=== PATIENT | male | born 1950 | race Caucasian/White ===

== ENCOUNTER 2018-12-01 14:43 | Inpatient (IN) ==
[2018-12-01] MEDS ORDERED: SOLU-MEDROL IV ONE (15:21)
[2018-12-01 16:02] LABS: BASO# 0.07 X1000 (0.0-0.2); BASO% 0.6 % (0.0-0.8); EOS# 0.21 X1000 (0.0-0.7); EOS% 1.9 % (0.0-10.0); HEMOGLOBIN 12.6 g/dL (14.0-18.0); IMM GRAN# 0.03 X1000 (0.0-0.04); IMM GRAN% 0.3 % (0.0-0.5); LYMPH# 1.64 X1000 (1.2-3.4); LYMPH% 14.5 % (20.5-51.1); MCH 28.1 PG (27-31); MCHC 31.5 g/dL (33-37); MCV 89.3 FL (81-99); MONO# 0.72 X1000 (0.11-0.59); MONO% 6.4 % (1.7-9.3); MPV 10.6 FL (7.4-10.4); NEUT# 8.65 X1000 (1.4-6.5); NEUT% 76.3 % (42.2-75.2); PLT 363 X1000 (130-400); RBC 4.48 XMIL (4.7-6.1); RDW 16.4 % (11.5-14.5); WBC 11.32 X1000 (4.8-10.8)
[2018-12-01 16:19] LABS: ALB/GLOB RATIO 0.9; ALBUMIN 3.7 g/dL (3.5-5.0); CALCIUM 9.3 mg/dL (8.8-10.2); CREATININE 1.2 mg/dL (0.7-1.2); POTASSIUM 4.4 mmol/L (3.5-5.1); TOTAL BILIRUBIN 0.43 mg/dL (0.20-1.00); TOTAL PROTEIN 7.7 g/dL (6.3-8.3)
[2018-12-01] MEDS ORDERED: XANAX PO ONE (16:53)
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
--- NOTE | 2018-12-01 17:04 | PROVIDER DOCUMENTATION ---
This chart was entered by Erica Rodriguez Scribe, acting as scribe for Hector Hurd MD. HPI-Respiratory General - General Chief Complaint: Shortness of Breath Stated Complaint: DR ROY-REFERRAL Time Seen by Provider: 12/01/18 15:00 Source: patient Allergies/Adverse Reactions: Patient Allergies Allergy/AdvReac Type Severity Reaction Status Date / Time glycopyrrolate [From Robinul] Allergy Severe SWELLING Verified 04/14/15 07:08 furosemide [From Lasix] Allergy Intermediate SWELLING Verified 04/14/15 07:08 Home Medications: Home Medication List Medication Instructions Recorded Confirmed Last Taken Type Alprazolam [Xanax] 2 mg PO Q12H PRN 04/12/15 04/14/15 Unknown History Aspirin/Dipyridamole [Aggrenox 25 1 each PO DAILY 04/12/15 04/14/15 Unknown History mg-200 mg Capsule] Bumetanide [Bumex] 1 mg PO BID 04/12/15 04/14/15 04/13/15 18:00 History Canagliflozin [Invokana] 300 mg PO DAILY 04/12/15 04/14/15 04/13/15 18:00 History Carvedilol [Coreg] 25 mg PO BID 04/12/15 04/14/15 04/14/15 06:00 History Clonazepam 0.5 mg PO Q12H PRN 04/12/15 04/14/15 Unknown History Clonidine [Catapres] 0.3 mg PO TID 04/12/15 04/14/15 04/14/15 06:00 History Cyclobenzaprine [Flexeril] 10 mg PO Q6H PRN PRN 04/12/15 04/14/15 Unknown History Duloxetine [Cymbalta] 30 mg PO DAILY 04/12/15 04/14/15 04/13/15 06:00 History Glimepiride [Amaryl] 4 mg PO BID 04/12/15 04/14/15 04/13/15 18:00 History Hydrocodone/Acetaminophen [[place] 1 each PO Q6H PRN PRN 04/12/15 04/14/15 04/13/15 18:00 History 10-325 Tablet] Insulin Detemir [Levemir Flextouch] 14 unit SQ BID 04/12/15 04/14/15 04/13/15 18:00 History Irbesartan [Avapro] 300 mg PO DAILY 04/12/15 04/14/15 04/13/15 06:00 History Lansoprazole [Prevacid] 30 mg PO DAILY 04/12/15 04/14/15 04/13/15 06:00 History Metformin [Glucophage] 250 mg PO BID 04/12/15 04/14/15 04/13/15 12:00 History Minoxidil 20 mg PO BID 04/12/15 04/14/15 04/14/15 06:00 History Ondansetron HCl [Zofran] 8 mg PO Q6H PRN PRN 04/12/15 04/14/15 Unknown History Oxycodone E.r. [Oxycontin] 40 mg PO BID 04/12/15 04/14/15 04/13/15 18:00 History Simvastatin [Zocor] 80 mg PO QHS 04/12/15 04/14/15 04/13/15 18:00 History Vitamin B Complex 1 each PO DAILY 04/12/15 04/14/15 04/13/15 20:00 History Hydrocodone/Acetaminophen [[place] 1 - 2 each PO Q4H PRN PRN #20 04/14/15 Unknown Rx 7.5-325 Tablet] tablet - History of Present Illness-Resp Nature of Presenting Problem: 68 yo F presents to ED with SOB, was seen in the hospital in and sent home with O2 for use at night. Pt denies use of O2 since October, until the last 3 days used all day. Hx of cardiac tamponade, COPD and pericardial centesis. Reports dyspnea. Echo done today which showed no cardia tamponade. Quality of Pain: reports: none Severity in ED: reports: mild Onset/Duration: reports: 3 days ago Timing: reports: still present Exposure: reports: unknown cause Cough Quality/Degree: reports: no cough Current Respiratory Medication Therapy: Initiated see nurses note Modifying Factors: improves with: exertion Associated Symptoms: reports: short of breath Similar Symptoms Previously?: Yes Recently seen or treated by another doctor?: Yes Review of Systems - Adult - REVIEW OF SYSTEMS - ADULT Constitutional: denies: fever, fatique, night sweats Eyes: reports: no symptoms reported Ears, Nose, Mouth & Throat: reports: no symptoms reported Cardiovascular: denies: chest pain, irregular heart rate Respiratory: reports: dyspnea on exertion, shortness of breath. denies: cough, wheezing Gastrointestinal: reports: no symptoms reported Genitourinary: reports: no symptoms reported Musculoskeletal: reports: no symptoms reported Integumentary: reports: no symptoms reported Neurological: reports: no symptoms reported Psychiatric: reports: no symptoms reported Endocrine: reports: no symptoms reported Hematologic/Lymphatic: reports: no symptoms reported Allergic/Immunologic: reports: no symptoms reported All Other Systems: Reviewed and Negative Past History - Adult - PAST MEDICAL HISTORY-ADULT Review of Records: reports: Nursing Assessment Review, Medications Reviewed Major Childhood Illnesses: reports: denies history Cardiovascular: reports: HTN Respiratory: reports: COPD Gastrointestinal: reports: denies history Genitourinary: reports: denies history Musculoskeletal: reports: denies history Neurological: reports: CVA Endocrine/Immune: reports: Diabetes Other Conditions: reports: denies history - PRIOR SURGERIES/PROCEDURES Surgical/Procedure History: reports: back/neck (back), other (nephrectomy) - IMMUNIZATION STATUS Childhood Immunizations: See Nurse Assessment Flu Vaccine: See Nurse Assessment - FAMILY HISTORY Family History: reviewed, not pertinent - SOCIAL HISTORY Smoking: non-smoker Physical Exam-General - PHYSICAL EXAM-ADULT Initial Vital Signs Reviewed: Yes - CONSTITUTIONAL General Appearance: appears well, alert, no apparent distress - EYES Eyes: PERRL/EOMI, pink conjunctivae - HEAD, EARS, NOSE, MOUTH & THROAT HENMT: normocephalic/atraumatic, moist mucous membranes, normal ENT inspection - NECK Neck: non-tender, full range of motion, supple - RESPIRATORY Respiratory: chest non-tender, lungs clear, normal breath sounds. negative: wheezing, dull on percussion, prolonged expiration, pain on inspiration - CARDIOVASCULAR Cardiovascular: normal peripheral pulses, regular rate, rhythm, no edema, no gallop, no JVD, no murmur - GASTROINTESTINAL (ABDOMEN) Abdominal Exam: normal bowel sounds, non tender, soft - LYMPHATIC Lymphatic: no adenopathy - MUSCULOSKELETAL Back Exam: normal inspection, no CVA tenderness, no vertebral tenderness Extremity: normal range of motion, non-tender, normal gait - SKIN Integumentary: normal color, normal turgor, warm/dry - NEUROLOGIC Neurologic: grossly normal - PSYCHIATRIC Psych/Mental Status: normal mood/affect, normal thought content, normal thought process, oriented x 3 - HEART Score HEART Score: History: Slightly Suspicious HEART Score: ECG: Non-Specific Repolarization Disturbance/LBBB/PM HEART Score: Age: > or = 65 Years HEART Score: Risk Factors for Atherosclerotic Disease: > or = 3 Risk Factors or History of Atherosclerotic Disease HEART Score: Troponin: < or = Normal Limit Total HEART Score:: 5 Progress - PLAN OF CARE/RESULTS Progress/Plan/Lab Results: Vital Signs - 8 hr 12/01/18 14:44 12/01/18 17:06 Temperature 97.9 F Pulse Rate 60 Respiratory Rate 20 Blood Pressure 147/77 O2 Sat by Pulse Oximetry 98 98 Laboratory Results - last 24 hr 12/01/18 12/01/18 12/01/18 15:45 15:45 15:45 WBC 11.32 H RBC 4.48 L Hgb 12.6 L Hct 40.0 L MCV 89.3 MCH 28.1 MCHC 31.5 L RDW Std Deviation 16.4 H Plt Count 363 MPV 10.6 H Immature Gran % (Auto) 0.3 Neut % (Auto) 76.3 H Lymph % (Auto) 14.5 L [place] % (Auto) 6.4 Eos % (Auto) 1.9 Baso % (Auto) 0.6 Immature Gran # (Auto) 0.03 Neut # (Auto) 8.65 H Lymph # (Auto) 1.64 [place] # (Auto) 0.72 H Eos # (Auto) 0.21 Baso # (Auto) 0.07 Specimen Type Sample Site pH pCO2 pO2 HCO3 Base Excess Oxyhemoglobin ABG O2 Sat (Calculated) ABG O2 Saturation ABG Carboxyhemoglobin ABG Methemoglobin Ortega Test A-a O2 Difference Total Hemoglobin Lactate Liter Flow Blood Gas Modality FiO2 % Sodium 146 H Potassium 4.4 Chloride 103 Carbon Dioxide 31 Anion Gap 12 BUN 14 Creatinine 1.2 Estimated GFR/1.73 m2 60 BUN/Creatinine Ratio 12 Glucose 139 H Calculated Osmolality 293 Calcium 9.3 Total Bilirubin 0.43 AST 15 ALT 14 Alkaline Phosphatase 161 H Creatine Kinase 69 Troponin T Cqo-T-Nigdsyclnlw Pept Total Protein 7.7 Albumin 3.7 Globulin 4.0 Albumin/Globulin Ratio 0.9 Plasma Lactate 1.5 12/01/18 12/01/18 12/01/18 15:45 15:45 16:51 WBC RBC Hgb Hct MCV MCH MCHC RDW Std Deviation Plt Count MPV Immature Gran % (Auto) Neut % (Auto) Lymph % (Auto) [place] % (Auto) Eos % (Auto) Baso % (Auto) Immature Gran # (Auto) Neut # (Auto) Lymph # (Auto) [place] # (Auto) Eos # (Auto) Baso # (Auto) Specimen Type ARTERIAL Sample Site R RADIAL pH 7.40 pCO2 53 H* pO2 64 HCO3 30.1 H Base Excess 6.7 H Oxyhemoglobin 92.6 L ABG O2 Sat (Calculated) 14.7 L ABG O2 Saturation 94.4 L ABG Carboxyhemoglobin 1.50 ABG Methemoglobin 0.4 Ortega Test YES A-a O2 Difference 69.0 Total Hemoglobin 11.3 L Lactate 1.50 Liter Flow 2.0 Blood Gas Modality CANNULA FiO2 % 28.0 Sodium Potassium Chloride Carbon Dioxide Anion Gap BUN Creatinine Estimated GFR/1.73 m2 BUN/Creatinine Ratio Glucose Calculated Osmolality Calcium Total Bilirubin AST ALT Alkaline Phosphatase Creatine Kinase Troponin T 0.032 Fms-C-Pkjqwonofoj Pept 1302 H Total Protein Albumin Globulin Albumin/Globulin Ratio Plasma Lactate Orders Category Date Time Status Admit - [facility] Routine AdmDCTranf 12/01/18 19:34 Active Activity - Bedrest with BSC ORDERED Care 12/01/18 19:34 Active Apply Mechanical Device [QM] ORDERED Care 12/01/18 19:34 Active DVT/PE Risk Assess/Protocol [QM] ORDERED Care 12/01/18 19:34 Active FSBS/Accucheck Result AC + HS Care 12/01/18 19:34 Active Intake and Output-Strict ORDERED Care 12/01/18 19:34 Active Nursing- Assist w/ IS as order ORDERED Care 12/01/18 19:34 Active Saline Loc NOW Care 12/01/18 15:20 Completed Update & Confirm Home Medicati ROUTINE Care 12/01/18 15:41 Active Vital Signs Order Q 4-HR ASSESS Care 12/01/18 19:34 Active Z-Document. for Tele Applied ORDERED Care 12/01/18 19:34 Active MD [Physician/Provider Consults] Routine Cons 12/01/18 15:33 Ordered CHEST-PORTABLE [RAD] Routine Exams 12/02/18 06:[address] ANGIOGRM PULMONARY ARTERIES [CT] Stat Exams 12/01/18 15:21 Completed A1C HGB W EST AVG GLUCOSE [CHEM] Routine Lab 12/02/18 06:00 Uncollected ABG [RESP] Routine Lab 12/01/18 16:51 Completed CBC WITH DIFF [HEME] Routine Lab 12/02/18 06:00 Ordered CBC WITH ELECTRONIC DIFF [HEME] Stat Lab 12/01/18 15:45 Completed CK PROFILE [SP CHEM] Routine Lab 12/02/18 06:00 Uncollected CK PROFILE [SP CHEM] Stat Lab 12/01/18 15:45 Completed CK TOTAL [CHEM] Routine Lab 12/01/18 20:39 Ordered COMPREHENSIVE METABOLIC PANEL [CHEM] Routine Lab 12/02/18 06:00 Ordered COMPREHENSIVE METABOLIC PANEL [CHEM] Stat Lab 12/01/18 15:45 Completed FOLATE Routine Lab 12/01/18 20:39 Ordered LACTATE, PLASMA [CHEM] Stat Lab 12/01/18 15:45 Completed LIPID PROFILE W/CALC LDL [LIPIDS] Routine Lab 12/02/18 06:00 Ordered MAGNESIUM [CHEM] Routine Lab 12/02/18 06:00 Uncollected PRO B-NATRIURETIC PEPTIDE Stat Lab 12/01/18 15:45 Completed SPUTUM CULTURE WITH GRAM STAIN [RM] Routine Lab 12/01/18 19:34 Uncollected TROPONIN T Routine Lab 12/01/18 20:39 Ordered TROPONIN T Stat Lab 12/01/18 15:45 Completed TSH Routine Lab 12/02/18 06:00 Uncollected URINE CULTURE [RM] Routine Lab 12/01/18 19:34 Uncollected VITAMIN B12 Routine Lab 12/01/18 20:39 Ordered Acetaminophen [Tylenol] Med 12/01/18 19:34 Active 650 mg PO Q6H PRN PRN Alprazolam [Xanax] Med 12/01/18 16:53 Discontinued 1 mg PO NOW ONE Insulin Lispro [Humalog] Med 12/01/18 21:00 Active See Protocol SUBQ 0700,1100,1600,2100 Methylprednisolone Sod Succ [Solu-Medrol] Med 12/01/18 15:21 Discontinued 80 mg IV NOW ONE Metoprolol [Lopressor] Med 12/01/18 21:00 Active 50 mg PO BID Ondansetron [Zofran] Med 12/01/18 19:34 Active 4 mg IV Q4H PRN PRN Incentive Spirometer Routine Oth 12/01/18 19:34 Active Oxygen Device Routine Ot 12/01/18 19:34 Active Telemetry [OM.EQ] Routine Oth 12/01/18 19:34 Active EKG [EKG] Stat Ther 12/01/18 15:22 Ordered Transfer/Admit Order [TRANSFER] Routine Transfer 12/01/18 16:38 Completed A/P Pericardial effusion with pulmonary effusions. will admit . Result Diagrams: 12/01/18 15:45 12/01/18 15:45 - EKG 1 Time of EKG reading by physician:: 16:26 EKG Read and Signed by:: Beckie Mills EKG Interpretation (*Must complete 3 of following elements*): Abnormal Rate: 58 Rhythm: Afib with SVR [place]: normal QRS: RBB [place] Interval: normal ST Wave: normal - CT/MRI 1 CT Study: Thorax Impression: Abnormal ([facility] [address] , [address], [place] [address] Department of Imaging Patient: KALEB SCHROEDER [facility] Date: 12/01/18#: [id number] : 1950DM Status: ADM INAcct#: [id number] Age/Sex: 68/[facility] Ordering Physician: Hector Hurd MD Family Physician: Jorge Glover Reason for Procedure: sob ___ Signed EXAM: CT ANGIOGRM PULMONARY ARTERIES HISTORY: sob TECHNIQUE: CT chest with intravenous contrast. Pulmonary arterial protocol with MIP images. COMPARISON: 11/12/2018 FINDINGS: there is a moderate-sized right-sided pleural effusion measuring 4.4 cm posteriorly and inferiorly in the midline and a smaller left effusion measuring 1.9 cm. These are larger than on the prior study. There is also a moderate to large pericardial effusion measuring 2.7 cm posteriorly on the left. Overall the pericardial effusion is larger than on the prior study. No thoracic aortic aneurysm or dissection. Normal opacification of the pulmonary arteries and their major branches. There is lower lobe atelectasis with questionable small infiltrates. No bronchiectasis. There are calcified mediastinal nodes and scattered granuloma. There is an avascular right subclavian artery going behind the esophagus. IMPRESSION: 1.No pulmonary emboli 2.Development of a moderate-sized right pleural effusion and small left pleural effusion with basilar atelectasis and possibly underlying infiltrates 3.Increase in the size in the moderate to large pericardial effusion This exam was performed using automated exposure control, adjustment of mA or kV according to patient size, and/or use of iterative reconstruction technique. Electronically signed by Lazaro Baca 12/01/2018 6:51 PM 12/01/18 1851 Interpreting Physician: Lazaro Baca MD Dictated Date/Time: 12/01/18 1848 cc: Hector Hurd MD; Jorge Glover) - CONSULTS/PCP/HOSPITALIST Notification #1 *Consult/PCP/Hospitalist*: Hospitalist Time Discussed: 15:00 Consult Disposition: Admit Departure - Departure Date of Disposition Decision: 12/01/18 Time of Disposition Decision: 20:41 DIAGNOSIS: Pericardial effusion, Pleural effusion Disposition: ADMITTED INPATIENT 09 Certified Medical Emergency: Emergent Condition: Stable - Critical Care Note This patient required my direct & personal management of CC.: No Attestation - Physician/ EMERALD Attestation Patient care was provided by Advanced Practice Provider:: No The physician spent face to face time with patient:: Yes Advanced Practice Provider documentation review:: Supervising physician onsite and consulted in the evaluation and care of this patient. The physician did have a face to face encounter with the patient. This chart was documented by the indicated scribe, (Erica Rodriguez Scribe) and accurately reflects the services I performed and decisions made by me, Hector Hurd MD, as attested by the provider's signature.
[2018-12-01 17:08] LABS: ALLEN TEST YES; BE 6.7 mmoll (-3.0-3.0); BLOOD TYPE ARTERIAL; HCO3-(ACT) 30.1 mmoll (20.0-26.0); METHB 0.4 % (0.0-1.5); MODALITY CANNULA; O2(CT) 14.7 mL/dL (15.0-23.0); O2HB 92.6 % (95.0-99.0); PO2(98.6) 64 mmHg (60-100); SAMPLE BLOOD; SAO2 94.4 % (95.0-100.0); THB 11.3 g/dL (11.5-17.4)
[2018-12-01 17:11] LABS: PCO2(98.6) 53 mmHg (35-45)
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
[2018-12-01] MEDS ORDERED: ATIVAN IV ONE (17:33)
--- NOTE | 2018-12-01 18:54 | Diag Imaging Result Doc PS360 ---
EXAM: CT ANGIOGRM PULMONARY ARTERIES HISTORY: sob TECHNIQUE: CT chest with intravenous contrast. Pulmonary arterial protocol with MIP images. COMPARISON: 11/12/2018 FINDINGS: there is a moderate-sized right-sided pleural effusion measuring 4.4 cm posteriorly and inferiorly in the midline and a smaller left effusion measuring 1.9 cm. These are larger than on the prior study. There is also a moderate to large pericardial effusion measuring 2.7 cm posteriorly on the left. Overall the pericardial effusion is larger than on the prior study. No thoracic aortic aneurysm or dissection. Normal opacification of the pulmonary arteries and their major branches. There is lower lobe atelectasis with questionable small infiltrates. No bronchiectasis. There are calcified mediastinal nodes and scattered granuloma. There is an avascular right subclavian artery going behind the esophagus. IMPRESSION: 1.No pulmonary emboli 2.Development of a moderate-sized right pleural effusion and small left pleural effusion with basilar atelectasis and possibly underlying infiltrates 3.Increase in the size in the moderate to large pericardial effusion This exam was performed using automated exposure control, adjustment of mA or kV according to patient size, and/or use of iterative reconstruction technique. Electronically signed by Lazaro Baca 12/01/2018 6:51 PM
[2018-12-01] MEDS ORDERED: ZOFRAN IV PRN (19:34)
[2018-12-01] MEDS ORDERED: TYLENOL PO PRN (19:34)
[2018-12-01] MEDS: HUMALOG SUBQ SCH (21:00)
[2018-12-01] MEDS: LOPRESSOR PO SCH (21:06)
[2018-12-02] MEDS: HUMALOG SUBQ SCH ×4 (06:06→20:52)
[2018-12-02 06:21] LABS: BASO# 0.01 X1000 (0.0-0.2); BASO% 0.1 % (0.0-0.8); HEMATOCRIT 36.3 % (42.0-52.0); HEMOGLOBIN 11.5 g/dL (14.0-18.0); IMM GRAN# 0.03 X1000 (0.0-0.04); IMM GRAN% 0.3 % (0.0-0.5); LYMPH# 0.79 X1000 (1.2-3.4); LYMPH% 7.2 % (20.5-51.1); MCH 28.3 PG (27-31); MCHC 31.7 g/dL (33-37); MCV 89.4 FL (81-99); MONO% 0.9 % (1.7-9.3); MPV 11.3 FL (7.4-10.4); NEUT# 10.07 X1000 (1.4-6.5); NEUT% 91.5 % (42.2-75.2); PLT 312 X1000 (130-400); RBC 4.06 XMIL (4.7-6.1); RDW 16.3 % (11.5-14.5)
[2018-12-02 06:24] LABS: HEMOGLOBIN A1C 6.7 % (4.8-6.0)
[2018-12-02 06:36] LABS: CHOLESTEROL 88 mg/dL (0-200); HDL 41 mg/dL (35-55); LDL 23 mg/dL; TRIGLYCERIDES 122 mg/dL (39-160); VLDL 24 mg/dL
[2018-12-02 06:48] LABS: AGAP 13; ALB/GLOB RATIO 0.9; ALBUMIN 3.6 g/dL (3.5-5.0); ALKALINE PHOSPHATASE 151 U/L (32-122); BUN 17 mg/dL (8-22); CALCIUM 8.9 mg/dL (8.8-10.2); CHLORIDE 101 mmol/L (98-107); CK PROFILE 45 U/L (24-204); COSMO 292; CREATININE 1.1 mg/dL (0.7-1.2); ESTIMATED GFR > 60; GLUCOSE 223 mg/dL (70-104); GOT 13 U/L (10-34); GPT 12 U/L (10-44); POTASSIUM 4.3 mmol/L (3.5-5.1); SODIUM 142 mmol/L (136-145); TCO2 28 mmol/L (25-35); TOTAL BILIRUBIN 0.37 mg/dL (0.20-1.00); TOTAL PROTEIN 7.6 g/dL (6.3-8.3)
--- NOTE | 2018-12-02 07:31 | Diag Imaging Result Doc PS360 ---
EXAM: CHEST-PORTABLE INDICATION: sob TECHNIQUE: One view COMPARISON: 11/12/2018 FINDINGS: There are bilateral small effusions and bibasilar mild atelectasis. Pulmonary vascularity is mildly prominent suggesting mild pulmonary venous congestion. There is stable cardiomegaly. IMPRESSION: Pulmonary venous congestion and small bibasilar pleural effusions. Electronically signed by Didier Hidalgo 12/02/2018 7:29 AM
[2018-12-02 07:37] LABS: LYMPHS 7 % (21-51); SEGS 93 % (42-75)
--- NOTE | 2018-12-02 07:41 | EKG Report ---
Test Performed on : 12/01/2018 4:26:11 PM Test Reason : CP Blood Pressure : / mmHG Vent. Rate : 058 BPM Atrial Rate : 288 BPM P-R Int : 000 ms QRS Dur : 148 ms QT Int : 442 ms P-R-T Axes : 000 052 022 degrees QTc Int : 433 ms Atrial fibrillation. with slow ventricular response. Right bundle branch block Abnormal ECG No previous ECGs available Unconfirmed Result
[2018-12-02] MEDS: LOPRESSOR PO SCH ×2 (08:46→20:52)
[2018-12-02] MEDS ORDERED: KLONOPIN PO PRN (10:42)
[2018-12-02] MEDS ORDERED: NORCO-7.5 PO PRN (10:42)
[2018-12-02] MEDS ORDERED: OXYCONTIN PO PRN ×2 (10:45→12:16)
[2018-12-02] MEDS ORDERED: LEVEMIR SUBQ SCH (11:00)
[2018-12-02] MEDS: GLUCOPHAGE PO SCH ×2 (11:53→17:26)
[2018-12-02 15:05] LABS: C REACTIVE PROT QUANT 13.66 mg/L (0.00-5.00); URIC ACID 6.6 mg/dL (3.4-7.0)
[2018-12-02] MEDS: ZAROXOLYN PO SCH (15:06)
[2018-12-02] MEDS: CATAPRES PO SCH ×2 (15:06→20:51)
[2018-12-02] MEDS: BUMEX IV SCH (15:07)
--- NOTE | 2018-12-02 15:08 | PROGRESS NOTE ---
DATE: 12/02/2018 SUBJECTIVE: The patient has no major complaints. OBJECTIVE: Vital signs: Blood pressure is 174/78, heart rate of 76, respiratory rate of 19, temperature 98.1 degrees, 100% on 3 L. Cardiovascular: Regular rate and rhythm. Pulmonary: Bilateral breath sounds. Clear to auscultation. GI: Soft, nontender, nondistended. Bowel sounds are positive. LABORATORY DATA: White count is 11, hemoglobin and hematocrit 11 and 36, platelets 312,000. Basic was normal. Sugar up to 355. A1c is 6.7. PROBLEM LIST: 1. Dyspnea, hypoxia, acute hypoxic respiratory failure. It is unclear what the etiology is. Cardiology and Pulmonology are seeing him. He clearly has bilateral pleural effusions and he has a pericardial effusion, although it is improved. Unclear what the mechanism of his pericardial effusion is. It was not traumatic. It looked transudative, if that can be applied to a pericardial effusion; it looked more like 3rd spacing. His echo is pending here. We will continue diuretics. I cannot tell if we did diuretics on exam here, but we will institute Bumex because he is allergic to lasix. He was also given methylprednisone. So at this point, I think this is really volume overload. Unclear initial diagnosis. He had an echo done yesterday I think as an outpatient that looked good. There was no major effusion. His EF is 65%. He may have some diastolic failure, but we will continue to follow. 2. Diabetes. We will continue his regular medications and monitor. 3. Hypertension. Appears to be overall stable. Continue regular medications. 4. Atrial fibrillation. He is rate controlled. Holding anticoagulation due to concern over possible hemorrhagic transformation. cc: Brett Rabago MD [facility]
[2018-12-02] MEDS: DUONEB (A & A) INH PRN (15:26)
[2018-12-02] MEDS: AMARYL PO SCH (17:26)
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
[2018-12-02] MEDS: COREG PO SCH (20:51)
[2018-12-02] MEDS: OXYCONTIN PO PRN (20:51)
[2018-12-02] MEDS: FLEXERIL PO SCH (20:51)
[2018-12-02] MEDS: PRILOSEC PO SCH (20:51)
[2018-12-03] MEDS: BUMEX IV SCH ×2 (02:30→16:07)
[2018-12-03 05:16] LABS: BASO# 0.05 X1000 (0.0-0.2); BASO% 0.4 % (0.0-0.8); EOS# 0.11 X1000 (0.0-0.7); EOS% 0.9 % (0.0-10.0); HEMATOCRIT 38.2 % (42.0-52.0); HEMOGLOBIN 11.9 g/dL (14.0-18.0); IMM GRAN# 0.03 X1000 (0.0-0.04); IMM GRAN% 0.2 % (0.0-0.5); LYMPH# 2.22 X1000 (1.2-3.4); LYMPH% 17.7 % (20.5-51.1); MCH 28.2 PG (27-31); MCHC 31.2 g/dL (33-37); MCV 90.5 FL (81-99); MONO# 0.79 X1000 (0.11-0.59); MONO% 6.3 % (1.7-9.3); MPV 10.6 FL (7.4-10.4); NEUT# 9.32 X1000 (1.4-6.5); NEUT% 74.5 % (42.2-75.2); PLT 308 X1000 (130-400); RBC 4.22 XMIL (4.7-6.1); RDW 16.9 % (11.5-14.5); WBC 12.52 X1000 (4.8-10.8)
[2018-12-03 05:39] LABS: CALCIUM 9.2 mg/dL (8.8-10.2); CREATININE 1.2 mg/dL (0.7-1.2); POTASSIUM 3.8 mmol/L (3.5-5.1)
[2018-12-03] MEDS: HUMALOG SUBQ SCH ×4 (06:20→21:25)
[2018-12-03] MEDS: PRILOSEC PO SCH ×2 (06:21→21:25)
[2018-12-03] MEDS ORDERED: PRILOSEC PO SCH (07:00)
--- NOTE | 2018-12-03 07:45 | Diag Imaging Result Doc PS360 ---
EXAM: CHEST-PORTABLE 12/03/2018 HISTORY: dyspnea TECHNIQUE: AP portable at 0558 COMMENT: There is cardiomegaly. There are bilateral pleural effusions. The lungs are better expanded than on 12/02/2018. Otherwise there has been no significant change. IMPRESSION: Bilateral pleural effusions. Cardiomegaly and mild pulmonary edema. Electronically signed by Jere Gould 12/03/2018 7:43 AM
[2018-12-03] MEDS: GLUCOPHAGE PO SCH ×3 (08:06→16:07)
[2018-12-03] MEDS: LIPITOR PO SCH (08:25)
[2018-12-03] MEDS: OXYCONTIN PO PRN (08:25)
[2018-12-03] MEDS: AMARYL PO SCH ×2 (08:26→16:04)
[2018-12-03] MEDS: XANAX XR PO SCH (08:26)
[2018-12-03] MEDS: COREG PO SCH ×2 (08:26→21:25)
[2018-12-03] MEDS: ZAROXOLYN PO SCH (08:27)
[2018-12-03] MEDS: NORVASC PO SCH (08:28)
[2018-12-03] MEDS: MIRALAX PO SCH (08:28)
[2018-12-03] MEDS: NON-FORMULARY MED (Dapagliflozin Propanediol [Farxiga] 0 MG) PO SCH (08:29)
[2018-12-03] MEDS: AVAPRO PO SCH (08:29)
[2018-12-03] MEDS: SALAGEN PO SCH (08:29)
[2018-12-03] MEDS: CATAPRES PO SCH ×3 (08:34→21:25)
[2018-12-03] MEDS: NEURONTIN PO SCH (08:37)
[2018-12-03] MEDS: CYMBALTA PO SCH (08:38)
[2018-12-03] MEDS: VICON-C PO SCH (08:39)
[2018-12-03] MEDS: FLEXERIL PO SCH ×2 (08:39→21:25)
[2018-12-03 10:15] LABS: ALLEN TEST YES; BE 7.3 mmoll (-3.0-3.0); BLOOD TYPE ARTERIAL; HCO3-(ACT) 30.6 mmoll (20.0-26.0); METHB 0.3 % (0.0-1.5); O2(CT) 15.8 mL/dL (15.0-23.0); O2HB 94.6 % (95.0-99.0); PO2(98.6) 76 mmHg (60-100); SAMPLE BLOOD; THB 11.8 g/dL (11.5-17.4); pH(98.6) 7.42 (7.35-7.45)
[2018-12-03 10:16] LABS: MODALITY CANNULA
[2018-12-03 10:17] LABS: PCO2(98.6) 51 mmHg (35-45)
[2018-12-03] MEDS: LOPRESSOR PO SCH (11:32)
[2018-12-03] MEDS: SANTYL OINT TOP SCH (11:49)
--- NOTE | 2018-12-03 14:40 | PROGRESS NOTE ---
DATE: 12/03/2018 SUBJECTIVE: Mr. Wei is sitting up at the bedside with family members present. He has no complaints. OBJECTIVE: Vital Signs: Blood pressure is 162/80, with a heart rate of 67, respirations 18, temperature is 98.5 degrees, with O2 saturations of 99-100% on 2 L nasal cannula. Cardiovascular: Regular rate and rhythm. S1 and S2 are appreciated. His peripheral pulses are palpable x4 extremities. Calves are nontender. Pulmonary: Breath sounds are clear with no increased work of breathing noted. Gastrointestinal: Abdomen is soft, nontender, nondistended with bowel sounds in all 4 quadrants. Skin: Warm and dry. Dressing to the top of his head is clean, dry, and intact. Labs: WBC is 12.5, with a hemoglobin of 11.9, hematocrit 38.2, platelets of 308,000. Sodium 145, potassium 3.8, BUN 18, creatinine 1.2, with blood sugars ranging 160s to 170s. Chest x-ray revealed bilateral pleural effusions, cardiomegaly, and pulmonary edema. ASSESSMENT AND PLAN: 1. Pericardial effusion. Cardiology is following. We will continue to diurese. 2. Acute hypoxic respiratory failure. We will continue to supplement oxygen and diurese. 3. Diabetes mellitus. We will continue his home medications and monitor. 4. Hypertension. We will continue his regimen. 5. Atrial fibrillation. Heart rate is controlled. We are continuing to hold his anticoagulation. 6. Chronic kidney disease. We will monitor labs and renal dose medications as is appropriate. 7. Chronic pain. We will continue his opiates. 8. Scalp laceration with necrosed flap. This is being followed by Dr. Whitman in general surgery. Dictated by MEI Evans for Nicholas Valdovinos MD This chart was documented by, MEI Evans and accurately reflects the services performed, treatment plan and medical decisions as attested by the providers signature Nicholas Valdovinos MD. cc: MEI Evans MD
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
[2018-12-03] MEDS: ELIQUIS PO SCH (21:25)
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
--- NOTE | 2018-12-04 | PROGRESS NOTE ---
DATE: 12/03/2018 SUBJECTIVE: Patient notes that he is feeling better, still having some cough, congestion. Still having some shortness of breath. OBJECTIVE: Vital signs: Temperature 99, pulse 61, respiratory 18, BP 150/75. General: Patient is in no is in mild current respiratory distress. He is awake, alert, oriented. He is very pleasant to talk with. HEENT: Normocephalic. Neck: Supple. Cardiovascular: Regular rate. Chest: Clear. Decreased breath sounds. No crackles currently. Abdomen: Soft. Extremities: Moves all extremities. ASSESSMENT: 1. Bilateral pleural effusions. 2. Dyspnea on exertion. 3. Acute on chronic respiratory failure. 4. Hypertension. 5. Diabetes. 6. Atrial fibrillation. PLAN: We will continue patient in the hospital. Continue to treat his pleural effusions. Continue physical therapy. Hopefully, home soon. Dr. Gar will continue to follow his surgical needs. cc: Nicholas Valdovinos MD
[2018-12-04] MEDS: DUONEB (A & A) INH PRN ×3 (03:22→16:04)
[2018-12-04 05:01] LABS: ALLEN TEST YES; BE 7.5 mmoll (-3.0-3.0); BLOOD TYPE ARTERIAL; HCO3-(ACT) 30.7 mmoll (20.0-26.0); O2(CT) 18.2 mL/dL (15.0-23.0); O2HB 95.5 % (95.0-99.0); PCO2(98.6) 50 mmHg (35-45); PO2(98.6) 82 mmHg (60-100); SAMPLE BLOOD; SAO2 97.8 % (95.0-100.0); THB 13.5 g/dL (11.5-17.4); pH(98.6) 7.43 (7.35-7.45)
[2018-12-04 05:06] LABS: MODALITY BI PAP
[2018-12-04 05:55] LABS: BASO# 0.05 X1000 (0.0-0.2); BASO% 0.5 % (0.0-0.8); EOS# 0.13 X1000 (0.0-0.7); EOS% 1.4 % (0.0-10.0); HEMATOCRIT 39.4 % (42.0-52.0); HEMOGLOBIN 12.4 g/dL (14.0-18.0); IMM GRAN# 0.02 X1000 (0.0-0.04); IMM GRAN% 0.2 % (0.0-0.5); LYMPH# 1.39 X1000 (1.2-3.4); LYMPH% 14.9 % (20.5-51.1); MCH 27.9 PG (27-31); MCHC 31.5 g/dL (33-37); MCV 88.7 FL (81-99); MONO# 0.75 X1000 (0.11-0.59); MPV 10.8 FL (7.4-10.4); PLT 286 X1000 (130-400); RBC 4.44 XMIL (4.7-6.1); RDW 16.4 % (11.5-14.5); WBC 9.34 X1000 (4.8-10.8)
[2018-12-04 06:17] LABS: CALCIUM 9.2 mg/dL (8.8-10.2); CREATININE 1.3 mg/dL (0.7-1.2); POTASSIUM 3.7 mmol/L (3.5-5.1)
[2018-12-04] MEDS: BUMEX IV SCH (06:20)
[2018-12-04] MEDS: HUMALOG SUBQ SCH ×4 (06:21→21:02)
[2018-12-04] MEDS: PRILOSEC PO SCH ×2 (06:21→21:30)
[2018-12-04] MEDS: MIRALAX PO SCH (08:41)
[2018-12-04] MEDS: XANAX XR PO SCH (08:41)
[2018-12-04] MEDS: FLEXERIL PO SCH ×2 (08:42→21:02)
[2018-12-04] MEDS: VICON-C PO SCH (08:42)
[2018-12-04] MEDS: AVAPRO PO SCH (08:42)
[2018-12-04] MEDS: COREG PO SCH ×2 (08:42→21:02)
[2018-12-04] MEDS: ELIQUIS PO SCH ×2 (08:42→21:02)
[2018-12-04] MEDS: SALAGEN PO SCH (08:42)
[2018-12-04] MEDS: GLUCOPHAGE PO SCH ×3 (08:43→17:18)
[2018-12-04] MEDS: AMARYL PO SCH ×2 (08:43→17:18)
[2018-12-04] MEDS: NEURONTIN PO SCH (08:43)
[2018-12-04] MEDS: NORVASC PO SCH (08:43)
[2018-12-04] MEDS: LIPITOR PO SCH (08:43)
[2018-12-04] MEDS: CATAPRES PO SCH ×3 (08:43→21:02)
[2018-12-04] MEDS: CYMBALTA PO SCH (08:43)
[2018-12-04] MEDS: ZAROXOLYN PO SCH (08:44)
[2018-12-04] MEDS: SANTYL OINT TOP SCH (08:44)
[2018-12-04] MEDS: OXYCONTIN PO PRN ×2 (08:55→21:08)
[2018-12-04] MEDS: NON-FORMULARY MED (Dapagliflozin Propanediol [Farxiga] 0 MG) PO SCH (09:38)
--- NOTE | 2018-12-04 12:35 | PROGRESS NOTE ---
DATE: 12/04/2018 INTERVAL HISTORY: No acute event overnight. The patient is feeling significantly better. Denies any chest pain. He is still feeling a little short of breath when he does physical exertion. However, at rest he is feeling better. He states if his shortness of breath was 10 on 10 on presentation, his shortness of breath now is probably 3 on 10. He states he is making a good amount of urine. Input and output charting suggests -2.5 L over the last 24 hours. We discussed about changing his Bumex, and I answered all of his questions. Family is at bedside. VITALS: Currently, temperature 98 degrees, pulse of 59, respiratory rate 20, blood pressure of 143/79. He is saturating 98% on 3 L nasal cannula. PHYSICAL EXAMINATION: General: Morbidly obese. Not in any acute distress. Mouth: Oral cavity is dry. Lungs: Air entry decreased bilateral bases; however, in upper lung serrano his air entry is adequate bilaterally without any wheeze, rhonchi, crackles. Cardiovascular: S1, S2 normal. No murmur, rub, or gallop. Irregularly irregular. Abdomen: Soft, obese, nontender. There is a 10 x 10 cm superficial hematoma in hypogastric region. Extremities: Mild bilateral lower extremity edema. Neurologic: He is alert, oriented x3. He did have prior history of cerebrovascular accident. LABS: Suggestive of resolution of leukocytosis. Acceptable range of hemoglobin, hematocrit, and platelet count. He does have chronic hypercarbic respiratory failure which is compensated. He does have what appears to be chronic kidney disease stage III-A. His blood sugars have been in acceptable range. MICROBIOLOGY: No new microbiological data. The sputum Gram stain was unremarkable. ASSESSMENT AND PLAN: 1. Acute hypoxic respiratory failure due to likely diastolic heart failure exacerbation. His echocardiogram had ejection fraction of 65% as per the previous note, however with normal wall motion, and the echocardiogram did not comment on diastolic dysfunction, though. His bilateral pleural effusion and pericardial effusion could have contributed to this. Change intravenous bumetanide to oral bumetanide tomorrow and continue metolazone. Continue oxygenation to maintain saturation more than 94%. His ESR and CRP were nonspecifically elevated. However, JONATHAN was negative, and he denies known family history of autoimmune disease. It is possible that his bilateral pleural and pericardial effusion were likely in the setting of viral infection and acute sinusitis he had experience in late October of 2018. 2. Atrial fibrillation with slow ventricular response. Continue him on apixaban for anticoagulation with carvedilol. 3. History of insulin-dependent diabetes mellitus. Continue his home medications of Dapagliflozin, glimepiride, metformin. 4. Others. Continue his home alprazolam, clonazepam, duloxetine, gabapentin, hydrocodone and oxycodone for anxiety, chronic pain and neuropathy. 5. Disposition: I will transfer patient from [facility] to routine medical floor. If he continues to do better, my plan is to discharge him home with likely home oxygen tomorrow. Plan of care discussed with the patient and family members at bedside; all of their questions have been answered. cc: Dion Ng MD
--- NOTE | 2018-12-04 18:00 | GENERAL SURGERY PROGRESS NOTE ---
DATE: 12/04/2018 SUBJECTIVE: Wound is clean. No purulence. Granulating. PLAN: We will continue local wound care. Please call with any problems. cc: Merari Whitman MD
[2018-12-05] MEDS: PRILOSEC PO SCH (06:31)
[2018-12-05] MEDS: HUMALOG SUBQ SCH ×2 (06:32→12:06)
[2018-12-05] MEDS: DUONEB (A & A) INH PRN (08:26)
[2018-12-05] MEDS: AMARYL PO SCH (08:50)
[2018-12-05] MEDS: ELIQUIS PO SCH (08:51)
[2018-12-05] MEDS: GLUCOPHAGE PO SCH ×2 (08:51→12:06)
[2018-12-05] MEDS: FLEXERIL PO SCH (08:51)
[2018-12-05] MEDS: CATAPRES PO SCH (08:51)
[2018-12-05] MEDS: CYMBALTA PO SCH (08:51)
[2018-12-05] MEDS: NEURONTIN PO SCH (08:51)
[2018-12-05] MEDS: VICON-C PO SCH (08:51)
[2018-12-05] MEDS: LIPITOR PO SCH (08:51)
[2018-12-05] MEDS: XANAX XR PO SCH (08:51)
[2018-12-05] MEDS: NORVASC PO SCH (08:51)
[2018-12-05] MEDS: NON-FORMULARY MED (Dapagliflozin Propanediol [Farxiga] 0 MG) PO SCH (08:52)
[2018-12-05] MEDS: AVAPRO PO SCH (08:52)
[2018-12-05] MEDS: OXYCONTIN PO PRN (08:52)
[2018-12-05] MEDS: SALAGEN PO SCH (08:53)
[2018-12-05] MEDS: MIRALAX PO SCH (08:53)
[2018-12-05] MEDS ORDERED: BUMEX PO SCH (09:00)
[2018-12-05] MEDS: COREG PO SCH (09:20)
[2018-12-05 12:16] VITALS: BP 154/75
[2018-12-05] MEDS: SANTYL OINT TOP SCH (14:18)
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
== END 2018-12-05 14:33 | disposition home health service (06) | DRG 264 ==
LOC: ED 14:43 → SUATTDRO 17:17 → EDIPHOLD 17:17 → 3S 20:09 → EDIPHOLD 20:17 → 3S 20:38
PROVIDERS: ATTEND Internal Medicine
CPT/HCPCS: 71010; 71045; 71275; 80048; 80053; 80061; 82550; 82607; 82746; 82805; 82948; 83036; 83605; 83735; 83880; 84443; 84484; 84550; 85025; 85651; 86038; 86039; 86140; 87070; 87088; 87205; 93005; 93308; 94640; 94761; 94762; 94799; 96374; 96375; 99285; A9270; J1815; J2060; J2405; J2930; Q9967; S0171; XXXXX

== ENCOUNTER 2019-02-17 18:56 | Inpatient (IN) ==
[2019-02-17] MEDS ORDERED: BUMEX IV ONE ×2 (19:22→21:44)
[2019-02-17] MEDS ORDERED: DUONEB (A & A) INH ONE (19:22)
[2019-02-17] MEDS ORDERED: SOLU-MEDROL IV ONE (19:22)
[2019-02-17 19:53] LABS: ALLEN TEST YES; BE 5.4 mmoll (-3.0-3.0); BLOOD TYPE ARTERIAL; METHB 0.5 % (0.0-1.5); MODALITY ROOM AIR; O2(CT) 16.7 mL/dL (15.0-23.0); O2HB 92.8 % (95.0-99.0); PCO2(98.6) 49 mmHg (35-45); PO2(98.6) 67 mmHg (60-100); SAMPLE BLOOD; SAO2 94.1 % (95.0-100.0); THB 12.8 g/dL (11.5-17.4); pH(98.6) 7.41 (7.35-7.45)
--- NOTE | 2019-02-17 20:05 | Diag Imaging Result Doc PS360 ---
EXAM: CHEST-2 VIEWS HISTORY: short of breath TECHNIQUE: Chest two views COMPARISON: 12/03/2018 FINDINGS: The lungs are well expanded. The heart is enlarged. The vessels are not distended. There are no infiltrates. No pleural effusions. There are scattered granuloma. IMPRESSION: Cardiomegaly Electronically signed by Lazaro Baca 02/17/2019 8:02 PM
[2019-02-17 20:37] LABS: URINE SOURCE CLEAN CATCH
[2019-02-17 20:41] LABS: BILIRUBIN URINE NEGATIVE (NEGATIVE); BLOOD URINE NEGATIVE (NEGATIVE); COLOR YELLOW; GLUCOSE URINE >1000 mg/dL (NEGATIVE); KETONE URINE NEGATIVE (NEGATIVE); LEUKOCYTES URINE NEGATIVE (NEGATIVE); NITRITE URINE NEGATIVE (NEGATIVE); PROTEIN URINE NEGATIVE (NEGATIVE); SP GRAVITY URINE 1.005; TURBIDITY URINE CLEAR (CLEAR); UROBILINOGEN URINE NORMAL (NORMAL)
[2019-02-17 20:43] LABS: UR EPITHELIAL CELLS <10 /HPF (<10); URINE BACTERIA NEGATIVE /HPF; URINE RBC <10 /HPF (<10); URINE WBC <10 /HPF (<10)
[2019-02-17 20:53] LABS: BASO# 0.06 X1000 (0.0-0.2); BASO% 0.6 % (0.0-0.8); EOS# 0.24 X1000 (0.0-0.7); EOS% 2.6 % (0.0-10.0); HEMATOCRIT 41.1 % (42.0-52.0); HEMOGLOBIN 13.3 g/dL (14.0-18.0); IMM GRAN# 0.02 X1000 (0.0-0.04); IMM GRAN% 0.2 % (0.0-0.5); LYMPH# 1.96 X1000 (1.2-3.4); LYMPH% 20.9 % (20.5-51.1); MCH 29.5 PG (27-31); MCHC 32.4 g/dL (33-37); MCV 91.1 FL (81-99); MONO# 0.69 X1000 (0.11-0.59); MONO% 7.3 % (1.7-9.3); MPV 11.3 FL (7.4-10.4); NEUT# 6.42 X1000 (1.4-6.5); NEUT% 68.4 % (42.2-75.2); PLT 270 X1000 (130-400); RBC 4.51 XMIL (4.7-6.1); RDW 16.1 % (11.5-14.5); WBC 9.39 X1000 (4.8-10.8)
[2019-02-17 21:01] LABS: INR 0.87; PROTIME 12.5 Seconds (11.0-16.0); PTT 29.4 Seconds (22.3-41.8)
[2019-02-17 21:18] LABS: ALB/GLOB RATIO 1.2; CALCIUM 9.1 mg/dL (8.8-10.2); CREATININE 1.2 mg/dL (0.7-1.2); MAGNESIUM 2.1 mg/dL (1.5-2.7); POTASSIUM 3.7 mmol/L (3.5-5.1); TOTAL BILIRUBIN 0.27 mg/dL (0.20-1.00); TOTAL PROTEIN 7.4 g/dL (6.3-8.3)
--- NOTE | 2019-02-17 21:49 | PROVIDER DOCUMENTATION ---
This chart was entered by Ying Contreras Scribe, acting as scribe for Jake Mathias MD. HPI-Respiratory General - General Chief Complaint: Shortness of Breath Stated Complaint: SOB/FLUID Time Seen by Provider: 02/17/19 19:12 Source: patient Allergies/Adverse Reactions: Patient Allergies Allergy/AdvReac Type Severity Reaction Status Date / Time glycopyrrolate [From Robinul] Allergy Severe SWELLING Verified 02/17/19 20:09 furosemide [From Lasix] Allergy Intermediate SWELLING Verified 02/17/19 20:09 Home Medications: Home Medication List Medication Instructions Recorded Confirmed Last Taken Type Carvedilol [Coreg] 25 mg PO BID 04/12/15 12/01/18 04/14/15 06:00 History Clonazepam 0.5 mg PO DAILY PRN PRN 04/12/15 12/01/18 Unknown History Clonidine [Catapres] 0.3 mg PO TID 04/12/15 12/01/18 04/14/15 06:00 History Cyclobenzaprine [Flexeril] 10 mg PO BID 04/12/15 12/01/18 Unknown History Duloxetine [Cymbalta] 60 mg PO DAILY 04/12/15 12/01/18 04/13/15 06:00 History Glimepiride [Amaryl] 1 mg PO BID 04/12/15 12/01/18 04/13/15 18:00 History Insulin Detemir [Levemir Flextouch] 30 unit SQ AC 04/12/15 12/01/18 04/13/15 18:00 History Irbesartan [Avapro] 300 mg PO DAILY 04/12/15 12/01/18 04/13/15 06:00 History Metformin [Glucophage] 500 mg PO TID 04/12/15 12/01/18 04/13/15 12:00 History Oxycodone E.r. [Oxycontin] 40 mg PO Q8HR PRN 04/12/15 12/01/18 04/13/15 18:00 History Vitamin B Complex 1 each PO DAILY 04/12/15 12/01/18 04/13/15 20:00 History Hydrocodone/Acetaminophen [[place] 1 - 2 each PO Q4H PRN PRN #20 04/14/15 12/01/18 Unknown Rx 7.5-325 Tablet] tablet Alprazolam E.r. [Xanax Xr] 2 mg PO QAM 12/01/18 12/01/18 Unknown History Amlodipine Besylate [Norvasc] 10 mg PO DAILY 12/01/18 12/01/18 Unknown History Atorvastatin Calcium [Lipitor] 40 mg PO DAILY 12/01/18 12/01/18 Unknown History Dapagliflozin Propanediol [Farxiga] 10 mg PO DAILY 12/01/18 12/01/18 Unknown History Gabapentin 300 mg PO DAILY 12/01/18 12/01/18 Unknown History Omeprazole [Prilosec] 20 mg PO BID 12/01/18 12/01/18 Unknown History Pantoprazole Sodium [Protonix] 40 mg PO DAILY 12/01/18 12/01/18 Unknown History Pilocarpine HCl 5 mg PO DAILY 12/01/18 12/01/18 Unknown History Polyethylene Glycol 3350 [Miralax] 17 gm PO DAILY 12/01/18 12/01/18 Unknown History Promethazine HCl 25 mg PO DAILY 12/01/18 12/01/18 Unknown History Apixaban [Eliquis] 5 mg PO BID #60 tab 12/05/18 Unknown Rx Bumetanide [Bumex] 1 mg PO DAILY #60 tab 12/05/18 Unknown Rx Ipratropium [place] Inhaler 2 puff INH Q6H PRN #1 inhaler 12/05/18 Unknown Rx [Atrovent Hfa] - History of Present Illness-Resp Nature of Presenting Problem: 69yom presents to ED cc SOB, sweating and orthopnea for last 2 days. Pt also reports he is up 5lbs in last 2 weeks. Pt has hx of COPD and CHF and last had a hospital admission in December 2018. Onset/Duration: reports: 2 days ago Timing: reports: still present, constant, changing over time Current Respiratory Medication Therapy: Initiated see nurses note Modifying Factors: worse with: exertion, deep breath Associated Symptoms: reports: shortness of breath, sweaty Similar Symptoms Previously?: Yes Recently seen or treated by another doctor?: Yes Review of Systems - Adult - REVIEW OF SYSTEMS - ADULT Constitutional: reports: see hector NGUYEN. denies: chills, fever Eyes: reports: no symptoms reported Ears, Nose, Mouth & Throat: reports: no symptoms reported Cardiovascular: reports: see HPI, orthopnea Respiratory: reports: see HPI, shortness of breath Gastrointestinal: reports: no symptoms reported Genitourinary: reports: no symptoms reported Musculoskeletal: reports: no symptoms reported Integumentary: reports: no symptoms reported Neurological: reports: no symptoms reported Psychiatric: reports: no symptoms reported Endocrine: reports: see HPI, excessive sweating, other (increased weight) Hematologic/Lymphatic: reports: no symptoms reported Allergic/Immunologic: reports: no symptoms reported All Other Systems: Reviewed and Negative Past History - Adult - PAST MEDICAL HISTORY-ADULT Review of Records: reports: Nursing Assessment Review, Medications Reviewed, Social history reviewed & non-contributory. Major Childhood Illnesses: reports: denies history Cardiovascular: reports: HTN Respiratory: reports: COPD Gastrointestinal: reports: denies history Obstetrical/Gynecological: reports: denies history Genitourinary: reports: denies history Musculoskeletal: reports: denies history Neurological: reports: CVA Endocrine/Immune: reports: Diabetes Other Conditions: reports: denies history - PRIOR SURGERIES/PROCEDURES Surgical/Procedure History: reports: back/neck (back), other (nephrectomy) - IMMUNIZATION STATUS Childhood Immunizations: See Nurse Assessment Flu Vaccine: See Nurse Assessment - FAMILY HISTORY Family History: reviewed, not pertinent Physical Exam-General - PHYSICAL EXAM-ADULT Initial Vital Signs Reviewed: Yes - CONSTITUTIONAL General Appearance: alert. negative: anxious, combative - EYES Eyes: PERRL/EOMI, pink conjunctivae. negative: photophobia - HEAD, EARS, NOSE, MOUTH & THROAT HENMT: moist mucous membranes, normal ENT inspection. negative: angioedema - NECK Neck: non-tender, full range of motion, supple, normal inspection. negative: Brudzinski's sign, carotid bruit - RESPIRATORY Respiratory: chest non-tender, rhonchi, wheezing (expiratory). negative: normal breath sounds - CARDIOVASCULAR Cardiovascular: no edema, no JVD, no murmur, gallop/S3, other (distant heart sounds) - GASTROINTESTINAL (ABDOMEN) Abdominal Exam: normal bowel sounds, non tender, soft. negative: rigid, rebound, tenderness - LYMPHATIC Lymphatic: no adenopathy. negative: striations - MUSCULOSKELETAL Back Exam: normal inspection, no CVA tenderness, no vertebral tenderness. negative: swelling Extremity: normal range of motion, non-tender, normal gait, normal inspection, no pedal edema, no calf tenderness, normal capillary refill. negative: deformity - SKIN Integumentary: diaphoresis, warm (hot). negative: jaundice - NEUROLOGIC Neurologic: manager developmental II-XII nml as tested, grossly normal. negative: facial droop, focal weakness - PSYCHIATRIC Psych/Mental Status: normal mood/affect, normal thought content, normal thought process, oriented x 3. negative: disoriented x 3, anxious - HEART Score HEART Score: History: Slightly Suspicious HEART Score: ECG: Non-Specific Repolarization Disturbance/LBBB/PM HEART Score: Age: > or = 65 Years HEART Score: Risk Factors for Atherosclerotic Disease: > or = 3 Risk Factors or History of Atherosclerotic Disease HEART Score: Troponin: < or = Normal Limit (MODERATE RISK) Total HEART Score:: 5 Progress - PLAN OF CARE/RESULTS Progress/Plan/Lab Results: Vital Signs - 8 hr 02/17/19 18:58 02/17/19 19:22 02/17/19 19:32 Temperature 99.9 F H Pulse Rate 66 Respiratory Rate 24 Blood Pressure 145/76 141/81 127/73 O2 Sat by Pulse Oximetry 98 99 99 02/17/19 20:00 02/17/19 20:10 02/17/19 20:11 Temperature Pulse Rate 52 L 58 L 56 L Respiratory Rate 18 18 13 Blood Pressure 125/71 O2 Sat by Pulse Oximetry 100 97 98 02/17/19 20:15 02/17/19 20:34 Temperature Pulse Rate 88 55 L Respiratory Rate 16 19 Blood Pressure 101/63 O2 Sat by Pulse Oximetry 97 96 02/17/19 20:35 Influenza Screen - Final Nasopharyngeal Laboratory Results - last 24 hr 02/17/19 02/17/19 02/17/19 19:15 19:40 20:21 WBC 9.39 RBC 4.51 L Hgb 13.3 L Hct 41.1 L MCV 91.1 MCH 29.5 MCHC 32.4 L RDW Std Deviation 16.1 H Plt Count 270 MPV 11.3 H Immature Gran % (Auto) 0.2 Neut % (Auto) 68.4 Lymph % (Auto) 20.9 [place] % (Auto) 7.3 Eos % (Auto) 2.6 Baso % (Auto) 0.6 Immature Gran # (Auto) 0.02 Neut # (Auto) 6.42 Lymph # (Auto) 1.96 [place] # (Auto) 0.69 H Eos # (Auto) 0.24 Baso # (Auto) 0.06 PT INR PTT (Actin FS) Specimen Type ARTERIAL Sample Site R RADIAL pH 7.41 pCO2 49 H pO2 67 HCO3 29.0 H Base Excess 5.4 H Oxyhemoglobin 92.8 L ABG O2 Sat (Calculated) 16.7 ABG O2 Saturation 94.1 L ABG Carboxyhemoglobin 0.80 ABG Methemoglobin 0.5 Ortega Test YES A-a O2 Difference 21.0 Total Hemoglobin 12.8 Lactate 2.50 H Blood Gas Modality ROOM AIR FiO2 % 21.0 Sodium Potassium Chloride Carbon Dioxide Anion Gap BUN Creatinine Estimated GFR/1.73 m2 BUN/Creatinine Ratio Glucose Calculated Osmolality Calcium Magnesium Total Bilirubin AST ALT Alkaline Phosphatase Creatine Kinase Troponin T Low-B-Dvhwkajtlaw Pept Total Protein Albumin Globulin Albumin/Globulin Ratio Plasma Lactate Urine Source CLEAN CATCH Urine Color YELLOW Urine Turbidity CLEAR Urine pH 6.0 Ur Specific [place] 1.005 Urine Protein NEGATIVE Ur Glucose (Stick) >1000 A Ur Ketones (Stick) NEGATIVE Urine Blood NEGATIVE Urine Nitrite NEGATIVE Urine Bilirubin NEGATIVE Urobilinogen Dipstick NORMAL Urine Leukocytes NEGATIVE Urine WBC (Auto) <10 Urine RBC (Auto) <10 U Epithel Cells (Auto) <10 Urine Bacteria (Auto) NEGATIVE 02/17/19 02/17/19 02/17/19 20:21 20:21 20:21 WBC RBC Hgb Hct MCV MCH MCHC RDW Std Deviation Plt Count MPV Immature Gran % (Auto) Neut % (Auto) Lymph % (Auto) [place] % (Auto) Eos % (Auto) Baso % (Auto) Immature Gran # (Auto) Neut # (Auto) Lymph # (Auto) [place] # (Auto) Eos # (Auto) Baso # (Auto) PT INR PTT (Actin FS) Specimen Type Sample Site pH pCO2 pO2 HCO3 Base Excess Oxyhemoglobin ABG O2 Sat (Calculated) ABG O2 Saturation ABG Carboxyhemoglobin ABG Methemoglobin [place]ga Test A-a O2 Difference Total Hemoglobin Lactate Blood Gas Modality FiO2 % Sodium 143 Potassium 3.7 Chloride 99 Carbon Dioxide 28 Anion Gap 16 BUN 19 Creatinine 1.2 Estimated GFR/1.73 m2 60 BUN/Creatinine Ratio 16 Glucose 223 H Calculated Osmolality 294 Calcium 9.1 Magnesium 2.1 Total Bilirubin 0.27 AST 18 ALT 17 Alkaline Phosphatase 148 H Creatine Kinase 134 Troponin T Pdr-O-Lydnoptxtcr Pept 2058 H Total Protein 7.4 Albumin 4.0 Globulin 3.4 Albumin/Globulin Ratio 1.2 Plasma Lactate 2.3 H Urine Source Urine Color Urine Turbidity Urine pH Ur Specific [place] Urine Protein Ur Glucose (Stick) Ur Ketones (Stick) Urine Blood Urine Nitrite Urine Bilirubin Urobilinogen Dipstick Urine Leukocytes Urine WBC (Auto) Urine RBC (Auto) U Epithel Cells (Auto) Urine Bacteria (Auto) 02/17/19 02/17/19 20:21 20:21 WBC RBC Hgb Hct MCV MCH MCHC RDW Std Deviation Plt Count MPV Immature Gran % (Auto) Neut % (Auto) Lymph % (Auto) [place] % (Auto) Eos % (Auto) Baso % (Auto) Immature Gran # (Auto) Neut # (Auto) Lymph # (Auto) [place] # (Auto) Eos # (Auto) Baso # (Auto) PT 12.5 INR 0.87 PTT (Actin FS) 29.4 Specimen Type Sample Site pH pCO2 pO2 HCO3 Base Excess Oxyhemoglobin ABG O2 Sat (Calculated) ABG O2 Saturation ABG Carboxyhemoglobin ABG Methemoglobin [place] Test A-a O2 Difference Total Hemoglobin Lactate Blood Gas Modality FiO2 % Sodium Potassium Chloride Carbon Dioxide Anion Gap BUN Creatinine Estimated GFR/1.73 m2 BUN/Creatinine Ratio Glucose Calculated Osmolality Calcium Magnesium Total Bilirubin AST ALT Alkaline Phosphatase Creatine Kinase Troponin T < 0.010 Qpi-H-Gdupyhgfafb Pept Total Protein Albumin Globulin Albumin/Globulin Ratio Plasma Lactate Urine Source Urine Color Urine Turbidity Urine pH Ur Specific [place] Urine Protein Ur Glucose (Stick) Ur Ketones (Stick) Urine Blood Urine Nitrite Urine Bilirubin Urobilinogen Dipstick Urine Leukocytes Urine WBC (Auto) Urine RBC (Auto) U Epithel Cells (Auto) Urine Bacteria (Auto) Orders Category Date Time Status Nursing- Obtain EKG once Care 02/17/19 19:20 Active Saline Loc NOW Care 02/17/19 19:22 Active CHEST-2 VIEWS [RAD] Stat Exams 02/17/19 19:22 Completed ABG [RESP] Routine Lab 02/17/19 19:40 Completed BLOOD CULTURE [BLDCUL] Stat Lab 02/17/19 20:21 Results CBC WITH ELECTRONIC DIFF [HEME] Stat Lab 02/17/19 20:21 Completed CK PROFILE [SP CHEM] Stat Lab 02/17/19 20:21 Completed COMPREHENSIVE METABOLIC PANEL [CHEM] Stat Lab 02/17/19 20:21 Completed INFLUENZA SCREEN A/B Stat Lab 02/17/19 20:35 Completed LACTATE, PLASMA [CHEM] Stat Lab 02/17/19 20:21 Completed MAGNESIUM [CHEM] Stat Lab 02/17/19 20:21 Completed PRO B-NATRIURETIC PEPTIDE Stat Lab 02/17/19 20:21 Completed PROTIME WITH INR [COAG] Stat Lab 02/17/19 20:21 Completed PTT [COAG] Stat Lab 02/17/19 20:21 Completed TROPONIN T Stat Lab 02/17/19 20:21 Completed URINALYSIS W/POSS RFLX CULT [URINALYSIS] Stat Lab 02/17/19 19:15 Completed Albuterol 2.5MG/Ipratrop 0.5MG [Duoneb (A & A)] Med 02/17/19 19:22 Discontinued 3 ml INH NOW ONE Bumetanide [Bumex] Med 02/17/19 19:22 Discontinued 1 mg IV NOW ONE Bumetanide [Bumex] Med 02/17/19 21:44 Once 1 mg IV NOW ONE Methylprednisolone Sod Succ [Solu-Medrol] Med 02/17/19 19:22 Discontinued 125 mg IV NOW ONE Aerosol Treatments Routine Oth 02/17/19 19:23 Completed Aerosol Treatments Stat Oth 02/17/19 19:23 Completed EKG [EKG] Stat Ther 02/17/19 19:21 Ordered Result Diagrams: 02/17/19 20:21 02/17/19 20:21 - REASSESSMENT Reassessment #1 Time Reassessed: 21:45 Status: unchanged (Minimally improved with nebulizer treatment. Also given Bumex IV, but did not urinate. Will also now give additional Bumex) Reassessment Comment: lactic acidosis likely elevated due to Metformin. Doesn't meet sepsis crit - EKG 1 Time of EKG reading by physician:: 20:21 EKG Read and Signed by:: Jake Mathias EKG Interpretation (*Must complete 3 of following elements*): Abnormal (T wave abnormality consider inferior ischemia) Rate: 58 Rhythm: atrial fibrillation with slow ventricular response QRS: RBB MN Interval: normal - XRAY 1 XRAY Study: Chest Impression: Abnormal, See EMR Report (EXAM: CHEST-2 VIEWS HISTORY: short of breath TECHNIQUE: Chest two views COMPARISON: 12/03/2018 FINDINGS: The lungs are well expanded. The heart is enlarged. The vessels are not distended. There are no infiltrates. No pleural effusions. There are scattered granuloma. IMPRESSION: Cardiomegaly Electronically signed by Lazaro Baca 02/17/2019 8:02 PM 02/17/192001 Interpreting Physician: Lazaro Baca MD Dictated Date/Time: 02/17/192001) - CONSULTS/PCP/HOSPITALIST Notification #1 *Consult/PCP/Hospitalist*: Dr. Pineda Time Discussed: 21:46 Consult Disposition: Will see in ED Departure - Departure Date of Disposition Decision: 02/17/19 Time of Disposition Decision: 21:46 DIAGNOSIS: Dyspnea due to congestive heart failure, Elevated lactic acid level Acute exacerbation of CHF (congestive heart failure) Qualifiers: Heart failure type: combined systolic and diastolic Qualified Code(s): I50.43 - Acute on chronic combined systolic (congestive) and diastolic (congestive) heart failure Disposition: ADMITTED INPATIENT 09 Certified Medical Emergency: Emergent Condition: Fair Referrals and Follow-Ups: Jorge Glover [Primary Care Provider] - - Critical Care Note This patient required my direct & personal management of CC.: No Attestation - Physician/ EMERALD Attestation Patient care was provided by Advanced Practice Provider:: No The physician spent face to face time with patient:: Yes Advanced Practice Provider documentation review:: Supervising physician onsite and consulted in the evaluation and care of this patient. The physician did have a face to face encounter with the patient. This chart was documented by the indicated scribe, (Ying Contreras Scribe) and accurately reflects the services I performed and decisions made by me, Jake Mathias MD, as attested by the provider's signature.
[2019-02-17] MEDS: DUONEB (A & A) INH SCH (23:55)
[2019-02-18] MEDS: BUMEX IV SCH ×4 (00:45→23:48)
[2019-02-18] MEDS: DUONEB (A & A) INH SCH ×6 (03:10→23:32)
[2019-02-18 06:25] LABS: BASO# 0.04 X1000 (0.0-0.2); BASO% 0.5 % (0.0-0.8); HEMATOCRIT 40.1 % (42.0-52.0); HEMOGLOBIN 13.2 g/dL (14.0-18.0); IMM GRAN# 0.03 X1000 (0.0-0.04); IMM GRAN% 0.4 % (0.0-0.5); LYMPH# 0.93 X1000 (1.2-3.4); LYMPH% 12.7 % (20.5-51.1); MCH 29.8 PG (27-31); MCHC 32.9 g/dL (33-37); MCV 90.5 FL (81-99); MONO# 0.05 X1000 (0.11-0.59); MONO% 0.7 % (1.7-9.3); MPV 11.3 FL (7.4-10.4); NEUT# 6.25 X1000 (1.4-6.5); NEUT% 85.7 % (42.2-75.2); PLT 269 X1000 (130-400); RBC 4.43 XMIL (4.7-6.1); RDW 15.9 % (11.5-14.5)
[2019-02-18 06:28] LABS: AGAP 10; BUN 20 mg/dL (8-22); CALCIUM 9.2 mg/dL (8.8-10.2); CHLORIDE 99 mmol/L (98-107); COSMO 293; CREATININE 1.1 mg/dL (0.7-1.2); ESTIMATED GFR > 60; GLUCOSE 297 mg/dL (70-104); MAGNESIUM 2.1 mg/dL (1.5-2.7); POTASSIUM 3.6 mmol/L (3.5-5.1); SODIUM 140 mmol/L (136-145); TCO2 31 mmol/L (25-35)
[2019-02-18] MEDS: HUMULIN R SUBQ SCH ×4 (06:50→20:55)
--- NOTE | 2019-02-18 07:14 | EKG Report ---
Test Performed on : 02/17/2019 8:04:30 PM Test Reason : SOB Blood Pressure : / mmHG Vent. Rate : 058 BPM Atrial Rate : 300 BPM P-R Int : 000 ms QRS Dur : 152 ms QT Int : 490 ms P-R-T Axes : 000 025 -12 degrees QTc Int : 481 ms Atrial fibrillation. with slow ventricular response. Right bundle branch block T wave abnormality, consider inferior ischemia Abnormal ECG When compared with ECG of 01-DEC-2018 16:26, Inverted T waves have replaced nonspecific T wave abnormality in Anterior leads Unconfirmed Result
[2019-02-18 07:21] LABS: BANDS 2 % (0-1); LYMPHS 18 % (21-51); SEGS 80 % (42-75)
[2019-02-18] MEDS ORDERED: TYLENOL WITH CODEINE #4 PO PRN (08:17)
[2019-02-18] MEDS ORDERED: KLONOPIN PO PRN (08:17)
[2019-02-18] MEDS: VICON-C PO SCH (08:42)
[2019-02-18] MEDS: CYMBALTA PO SCH (08:42)
[2019-02-18] MEDS: NORVASC PO SCH (08:42)
[2019-02-18] MEDS: NEURONTIN PO SCH ×2 (08:42→20:55)
[2019-02-18] MEDS: PROTONIX PO SCH (08:42)
[2019-02-18] MEDS: COREG PO SCH ×2 (08:42→20:54)
[2019-02-18] MEDS: MIRALAX PO SCH (08:43)
[2019-02-18] MEDS ORDERED: ELIQUIS PO SCH (09:00)
--- NOTE | 2019-02-18 10:55 | HISTORY AND PHYSICAL ---
PRIMARY CARE PHYSICIAN: Dr. Jorge Glover CHIEF COMPLAINT: Shortness of breath x one week. HISTORY OF PRESENTING ILLNESS: 69 -year-old male with a history of hypertension, diabetes mellitus type 2, GERD, CHF and COPD on home oxygen who presented to the emergency department with one week history of progressive worsening shortness of breath. Patient states that he was having difficulty breathing despite having his oxygen on. Patient subsequently came to the emergency department and he was found to be in heart failure. He was given IV Bumex and he will need admission for further management. At the time of my examination patient denied any headache, fever, chills, chest pain, hemoptysis, or any weight change but complained of shortness of breath. PAST MEDICAL HISTORY: 1. Hypertension. 2. Diabetes mellitus type 2. 3. Gastroesophageal reflux disease. 4. Congestive heart failure. 5. Chronic obstructive pulmonary disease on home oxygen. 6. Cerebrovascular accident/transient ischemic attack. PAST SURGICAL HISTORY: 1. Back surgery. 2. Right shoulder surgery. 3. Right foot surgery. 4. Left nephrectomy. 5. Cholecystectomy. 6. Hernia repair. ALLERGIES: Robinul AND FUROSEMIDE. MEDICATIONS: He doesn't recall. Nursing staff will reconcile it. SOCIAL HISTORY: No history of smoking. Admits to social alcohol use. Denies any illicit drug use. FAMILY HISTORY: Positive for coronary disease in his mother and father. REVIEW OF SYSTEMS: 14 point review of systems other than stated in history of present illness, other systems negative. PHYSICAL EXAMINATION: GENERAL: Cooperative, friendly male, resting comfortably. VITAL SIGNS: Temperature 99.9 degrees, pulse 66, respirations 24, blood pressure 145/76. HEENT; Atraumatic, normocephalic. Extraocular movements are intact. PERRLA. NECK: No masses. CHEST: Bibasilar rales. CARDIOVASCULAR: Regular rate and rhythm. ABDOMEN: Soft, positive bowel sounds. EXTREMITIES: Trace edema. NEURO: He is alert, awake, oriented x 3. : No bladder distention. SKIN: Warm. LABORATORIES AND STUDIES: WBC is 9.39, hemoglobin 13.3, hematocrit 41.1, platelets 70. Pro-BNP 2058. Sodium 143, potassium 3.7, chloride 99, CO2 28, BUN 19, creatinine 1.2, glucose 223. Chest x-ray shows cardiomegaly. ASSESSMENT: 69 -year-old male with a history of hypertension, diabetes mellitus type 2, congestive heart failure and chronic obstructive pulmonary disease who presented to the emergency department with one week history of progressive worsening shortness of breath. He was evaluated in the emergency department. He was found to be in heart failure. He will require further admission for further management. IMPRESSION: 1. Congestive heart failure exacerbation. 2. Hypertension. 3. Diabetes mellitus type 2. 4. Chronic obstructive pulmonary disease. PLAN: 1. We will admit patient to medical floor with telemetry. 2. We will continue with gentle diuresis with Bumex. 3. We will monitor blood pressure closely and continue with antihypertensive agent. 4. Consult cardiology. 5. Put patient on glycemic protocol with sliding scale insulin regiment. 6. Continue with DuoNeb and supplemental oxygen. 7. Patient is on Eliquis and that will suffice for deep venous thrombosis prophylaxis. 8. We will continue to follow and reassess and make further recommendations based on patient's clinical course. cc: Nahum Pineda MD
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
[2019-02-18] MEDS: CATAPRES PO SCH ×2 (14:07→17:20)
[2019-02-18] MEDS: AMARYL PO SCH (16:54)
[2019-02-18] MEDS: LANTUS INSULIN SUBQ SCH (16:54)
[2019-02-18] MEDS: LIPITOR PO SCH (20:54)
[2019-02-18] MEDS: AVAPRO PO SCH (20:55)
--- NOTE | 2019-02-18 21:03 | PROGRESS NOTE ---
DATE: 02/18/2019 INTERVAL HISTORY: Mr. Wei was admitted overnight for acute diastolic congestive heart failure exacerbation. On presentation, he also had atypical chest pain which was getting worse on lying down on left lateral position. He was started on intravenous diuretics and Cardiology was consulted and he is scheduled to go for coronary angiography tomorrow. SUBJECTIVE: He is sitting with his family in the chair and denies any more chest pain, shortness of breath. We discussed about her exam findings and answered all of his questions. VITAL SIGNS: Currently vitals suggest temperature of 99 degrees, pulse 67, respiratory rate 20, blood pressure 180/77, saturating 97% on room air. PHYSICAL EXAMINATION: Obese. Not in any acute distress. Oral cavity is moist.Lungs: Air entry bilaterally equal. No wheeze, rhonchi, crackles. Cardiovascular: S1, S2 normal. No murmur or gallop. Abdomen: Soft nontender. Extremities: He has bilateral lower extremity edema. LABS: Suggestive of normocytic anemia, normal platelet count. His BMP has a potassium of 3.6 and magnesium of 2.1. Microbiology: Nasopharyngeal influenza screen was negative. ASSESSMENT AND PLAN: 1. Acute congestive heart failure with preserved ejection fraction exacerbation. 2. Intermittent atypical chest pain with negative NM stress test early in 2018 2. Insulin-dependent diabetes mellitus type 2 with hyperglycemia. 3. Essential hypertension. 4. Chronic obstructive pulmonary disease with ongoing tobacco use. 5. History of left-sided nephrectomy. PLAN: The patient is scheduled to undergo coronary angiography and right heart catheterization tomorrow to rule out any obstructive coronary artery disease. Noticeably, he did have myocardial perfusion scan in 10/2018 without any evidence of ischemic related defect and normal ejection fraction. I will continue his home medication of cardiovascular regimen including irbesartan, amlodipine, atorvastatin, carvedilol and we will keep him on intravenous diuretics with bumetanide. OTHERS: I will continue his home medication of clonazepam for anxiety, duloxetine, gabapentin for chronic pain, insulin, glargine, glimepiride, and sliding scale insulin for diabetes mellitus. DISCUSSION: The patient remains inside the hospital until he gets coronary angiography. After that, the plan of care will be decided after the coronary angiography. All of his questions and his family's questions at bedside have been answered. cc: MD RAISA Staples
--- NOTE | 2019-02-18 22:36 | ECHO REPORT ---
ORDER DATE: 02/18/2019 MEASUREMENTS: Septal thickness 0.9, left ventricular internal diameter diastole 5.4, posterior wall thickness 0.9. Aortic root 3.9, left atrium 3.7. SUMMARY: 1. Technically difficult study due to limited acoustic window quality. Intravenous echo contrast agent Optison was utilized to enhance endocardial definition. 2. Aortic valve appears without evidence of structural abnormality and opens adequately on 2- dimensional images. Peak gradient across aortic valve is less than 10 mmHg. Aortic root is borderline enlarged. Mitral and tricuspid valves are without evidence of structural abnormality while pulmonic valve is not well demonstrated. There is trace mitral regurgitation and trace tricuspid regurgitation. 3. Normal left ventricular dimensions demonstrated. The left ventricle appears somewhat hyperdynamic with estimated left ejection fraction greater than 70%. No regional wall motion abnormalities are evident. Left atrium is borderline enlarged on 2-dimensional images. Right atrium, right ventricle are normal in size with grossly preserved right ventricular systolic function. 4. Small posterior pericardial effusion demonstrated without evidence of hemodynamic significance. 5. Appearance of inferior vena cava suggests normal central venous pressure. cc: MD Galen Greenfield MD
[2019-02-19] MEDS: DUONEB (A & A) INH SCH ×6 (03:30→23:41)
[2019-02-19 05:42] LABS: HEMOGLOBIN 12.5 g/dL (14.0-18.0); MCH 30.3 PG (27-31); MCHC 32.9 g/dL (33-37); MCV 92.2 FL (81-99); MPV 11.6 FL (7.4-10.4); RBC 4.12 XMIL (4.7-6.1); RDW 16.6 % (11.5-14.5); WBC 14.25 X1000 (4.8-10.8)
[2019-02-19 05:51] LABS: INR 0.99; PROTIME 13.9 Seconds (11.0-16.0)
[2019-02-19 06:06] LABS: POTASSIUM 3.2 mmol/L (3.5-5.1)
[2019-02-19 06:07] LABS: CALCIUM 9.3 mg/dL (8.8-10.2); CREATININE 1.3 mg/dL (0.7-1.2); MAGNESIUM 2.3 mg/dL (1.5-2.7)
[2019-02-19] MEDS: HUMULIN R SUBQ SCH ×4 (06:19→20:29)
[2019-02-19] MEDS: BUMEX IV SCH (08:15)
[2019-02-19] MEDS: CYMBALTA PO SCH (08:15)
[2019-02-19] MEDS: CATAPRES PO SCH ×3 (08:16→16:13)
[2019-02-19] MEDS: VICON-C PO SCH (08:16)
[2019-02-19] MEDS: COREG PO SCH ×2 (08:16→20:29)
[2019-02-19] MEDS: NEURONTIN PO SCH ×2 (08:16→20:29)
[2019-02-19] MEDS: AMARYL PO SCH (08:16)
[2019-02-19] MEDS: PROTONIX PO SCH (08:16)
[2019-02-19] MEDS: NORVASC PO SCH (08:16)
--- NOTE | 2019-02-19 12:42 | PROGRESS NOTE ---
DATE: 02/19/2019 SUBJECTIVE: This morning Mr. Wei refers to be doing okay. was at the bedside at the time of the encounter. He denies any chest pain. No shortness of breath. He is pending a left heart catheterization procedure this morning. OBJECTIVE: Vital Signs: Blood pressure 187/72, pulse over 65, respirations 15, and temperature 98 degrees. Patient was saturating about 97% on room air. General: Mr. Wei is a 69-year-old gentleman. He looks obese with BMI of 37.6. Mucosa is pink. Anicteric. Acyanotic. Neck: Supple. Chest: Good air entry bilaterally. No crepitations. No rhonchi. Cardiovascular: Regular rate and rhythm. There are no murmurs. No rubs. No gallops. Gastroenterology: Abdomen is soft and nontender. Bowel sounds present. Extremities: No pedal edema. [employer] ARCHITECT: Patient is awake, alert, and oriented. LABORATORY DATA: WBC 14.25, hemoglobin 12.5, and platelet count of 287,000. Chemistry is also reviewed. Creatinine is 1.3. Glucose is fairly elevated. Lactate is normalized. ASSESSMENT: 1. Acute on chronic hypercarbic respiratory failure. This has improved with BiPAP therapy. 2. Intermittent atypical chest pain. The patient is pending a left heart catheterization today. 3. Chronic atrial fibrillation currently rate controlled. 4. Hypertension. We will continue with home medications. 5. Diabetes mellitus. We will continue with insulin regimen. 6. Obesity with suspicion of obesity hypoventilation syndrome. 7. Nocturnal hypoxemia. Patient is on oxygen therapy at night. In general, Mr. Wei seems to be doing fairly okay. Shortness of breath has improved. Echocardiogram shows an ejection fraction of 70%. He did have a stress test in October of this year which was normal because of ongoing on and off chest pain which probably is related to the atrial fibrillation. The patient is pending a left heart catheterization to rule out any underlying coronary artery disease. We will follow up with further recommendations from Cardiology. cc: MD RAISA Rendon
[2019-02-19] MEDS ORDERED: HEPARIN 1000 UNITS/NS 2,000 UNIT/1,000 ML IV.SOLN ONE (13:14)
[2019-02-19] MEDS ORDERED: DILAUDID ONE (13:44)
[2019-02-19] MEDS ORDERED: VERSED ONE (13:44)
[2019-02-19] MEDS ORDERED: ANESTHESIA PB SET 88 IN 5742 ONE (13:45)
[2019-02-19] MEDS ORDERED: CLAVE TWINSITE 32 IN 11959 ONE (13:45)
[2019-02-19] MEDS ORDERED: NS 1,000 ML ONE (13:45)
[2019-02-19] MEDS: MIRALAX PO SCH (16:12)
[2019-02-19] MEDS: BUMEX PO SCH ×2 (16:13→20:29)
[2019-02-19] MEDS: LANTUS INSULIN SUBQ SCH (16:14)
[2019-02-19] MEDS ORDERED: BUMEX PO SCH (17:00)
[2019-02-19] MEDS: LIPITOR PO SCH (20:29)
[2019-02-19] MEDS: AVAPRO PO SCH (20:29)
--- NOTE | 2019-02-19 20:32 | CARDIAC CATH REPORT ---
PROCEDURE NAME: - PROCEDURE: Cardiac catheterization. INDICATION: Heart failure, dyspnea concerning for possible anginal equivalent. Multiple cardiac risk factors. PROCEDURES PERFORMED: 1. Left heart catheterization. 2. Selective coronary angiography. PROCEDURE IN DETAIL: Mr. Wei was brought to the catheterization laboratory in fasting state. Informed consent was obtained. Prepped in usual fashion. He was anesthetized over the right radial after Ortega's test proved adequate. A 5-Telugu sheath was placed via true Seldinger technique. Radial cocktail was administered. Catheters were introduced. Hemodynamic measurements made in the ascending thoracic aorta. Coronary angiography was performed in multiple views using JL3.5 and JR4 diagnostic catheters. Left heart catheterization was performed using the JR4. At the conclusion of the procedure all sheaths and catheters were removed. TR band was left inflated at 10 mL of air with good capillary refill. Good hemostasis. No apparent complications. There was 5-10 mL of blood loss. There were 80 mL of IV contrast. FINDINGS: 1. The left main originates from the left coronary cusp. There is 10 to 20 percent ostial disease noted. 2. Left anterior descending originates from the left main. Minor luminal irregularities are noted somewhat diffusely throughout the vessel and the branch vessels. 3. Circumflex originates from the left main. Again, minor luminal irregularities are noted throughout the circumflex as well as its branch vessels. 4. Right coronary originates from the right coronary cusp. There is somewhat diffuse 20 to 30 percent disease in the proximal vessel as well as the early mid. The remainder of the vessel has minor luminal irregularities. 5. Aortic blood pressure is 157/72 with a mean of 108. Left ventricle pressure 157/7 with an LVEDP of 17. ASSESSMENT: Mr. Tim is a 69-year-old gentleman who presents with diastolic failure. PLAN: He does not have any flow-limiting coronary lesions. His left ventricular end-diastolic pressure is somewhat elevated. At this time, we will continue with cardiac risk factor modification including continued medications for risk factor modification. cc: Mynor Solomon MD
[2019-02-19] MEDS ORDERED: PERCOCET-10 PO PRN (20:46)
[2019-02-20] MEDS: DUONEB (A & A) INH SCH ×3 (03:04→11:51)
[2019-02-20 05:22] LABS: BASO# 0.08 X1000 (0.0-0.2); BASO% 0.9 % (0.0-0.8); EOS# 0.15 X1000 (0.0-0.7); EOS% 1.7 % (0.0-10.0); HEMATOCRIT 39.3 % (42.0-52.0); HEMOGLOBIN 12.6 g/dL (14.0-18.0); IMM GRAN# 0.04 X1000 (0.0-0.04); IMM GRAN% 0.4 % (0.0-0.5); LYMPH# 2.29 X1000 (1.2-3.4); LYMPH% 25.4 % (20.5-51.1); MCH 29.2 PG (27-31); MCHC 32.1 g/dL (33-37); MCV 91.2 FL (81-99); MONO# 0.75 X1000 (0.11-0.59); MONO% 8.3 % (1.7-9.3); MPV 11.4 FL (7.4-10.4); NEUT# 5.71 X1000 (1.4-6.5); NEUT% 63.3 % (42.2-75.2); PLT 260 X1000 (130-400); RBC 4.31 XMIL (4.7-6.1); RDW 16.3 % (11.5-14.5); WBC 9.02 X1000 (4.8-10.8)
[2019-02-20 05:46] LABS: AGAP 13; ALBUMIN 3.6 g/dL (3.5-5.0); BUN 18 mg/dL (8-22); CALCIUM 8.6 mg/dL (8.8-10.2); CHLORIDE 101 mmol/L (98-107); COSMO 292; ESTIMATED GFR > 60; GLUCOSE 196 mg/dL (70-104); PHOSPHORUS 3.8 mg/dL (2.7-4.5); POTASSIUM 3.1 mmol/L (3.5-5.1); SODIUM 143 mmol/L (136-145); TCO2 29 mmol/L (25-35)
[2019-02-20] MEDS: HUMULIN R SUBQ SCH ×2 (06:11→12:33)
--- NOTE | 2019-02-20 06:39 | EKG Report ---
Test Performed on : 02/19/2019 4:39:22 PM Test Reason : s/p heart cath Blood Pressure : / mmHG Vent. Rate : 071 BPM Atrial Rate : 071 BPM P-R Int : 160 ms QRS Dur : 158 ms QT Int : 460 ms P-R-T Axes : 015 013 -27 degrees QTc Int : 499 ms Normal sinus rhythm. Right bundle branch block T wave abnormality, consider inferior ischemia Abnormal ECG When compared with ECG of 17-FEB-2019 20:04, (Unconfirmed) Sinus rhythm. has replaced Atrial fibrillation. Confirmed by Wayne COLLADO, Ortega Sage ([id number]) on 02/23/2019 5:04:57 PM
[2019-02-20] MEDS ORDERED: ELIQUIS PO SCH (09:00)
[2019-02-20] MEDS: BUMEX PO SCH (10:00)
[2019-02-20] MEDS: LANTUS INSULIN SUBQ SCH (10:06)
[2019-02-20] MEDS: CYMBALTA PO SCH (10:08)
[2019-02-20] MEDS: NEURONTIN PO SCH (10:09)
[2019-02-20] MEDS: AMARYL PO SCH (10:09)
[2019-02-20] MEDS: NORVASC PO SCH (10:09)
[2019-02-20] MEDS: CATAPRES PO SCH ×2 (10:09→12:33)
[2019-02-20] MEDS: PROTONIX PO SCH (10:09)
[2019-02-20] MEDS: MIRALAX PO SCH (10:09)
[2019-02-20] MEDS: COREG PO SCH (10:14)
[2019-02-20] MEDS: VICON-C PO SCH (10:14)
[2019-02-20 11:40] VITALS: BP 172/67
[2019-02-20] MEDS ORDERED: KLOR-CON PO ONE (12:04)
--- NOTE | 2019-02-21 06:03 | DISCHARGE SUMMARY ---
ADMISSION DATE: 02/17/2019 DISCHARGE DATE: 02/20/2019 DISPOSITION: Home. FOLLOW-UP: 1. Dr. Glover. 2. Dr. Mynor Solomon. CONSULTATION DURING THIS ADMISSION: Cardiology was consulted. Patient was seen by Dr. Schafer. INVASIVE PROCEDURES DONE DURING THIS ADMISSION: A left heart catheterization was done by Dr. Mynor Solomon. IMAGING STUDIES OF SIGNIFICANCE: 1. A chest x-ray did show cardiomegaly. 2. An echocardiogram showed an ejection fraction of about 70% with a borderline enlarged aortic root. ADMISSION DIAGNOSES: 1. Congestive heart failure. 2. Hypertension. 3. Diabetes mellitus. 4. Chronic obstructive pulmonary disease. DIAGNOSES AT TIME OF DISCHARGE: 1. Acute on chronic hypercarbic respiratory failure. 2. Intermittent atypical chest pain. Left heart catheterization showed noncritical coronary disease. 3. Chronic atrial fibrillation currently rate controlled. 4. Hypertension. 5. Diabetes mellitus. 6. Obesity with suspicion of obesity, hypoventilation syndrome and obstructive sleep apnea. Patient is advised to follow up with Pulmonary Medicine. 7. Nocturnal hypoxemia. Patient uses oxygen at night. 8. Coronary arthrosclerosis with non limiting stenosis on left heart catheterization. DISCHARGE MEDICATIONS: 1. Klonopin 0.5. 2. Cyclobenzaprine. 3. Glimepiride 2 mg p.o. every morning. 4. Duloxetine 60 mg p.o. daily. 5. Carvedilol 25 mg p.o. b.i.d. 6. Clonidine 0.3 p.o. 3 times per day. 7. Avapro 300 p.o. at bedtime. 8. Amlodipine 10 mg p.o. daily. 9. Lipitor 40 mg p.o. daily. 10.10 mg p.o. daily. 11. Pantoprazole 40 mg p.o. daily. 12. Gabapentin 300 b.i.d. 13. Eliquis 5 mg b.i.d. PRESENTING COMPLAINT: Shortness of breath for 1 week. HISTORY OF PRESENTING COMPLAINT: Mr. Wei is a 69-year-old gentleman who is known to have COPD on home 02 oxygen only at night, GERD, and congestive heart failure came in because of worsening shortness of breath. The patient was evaluated thought to be in congestive heart failure, and was admitted for further medical care. HOSPITAL COURSE: Mr. Wei was admitted to the medical floor, and was initially started on IV diuretic therapy. He did diurese adequately. He became negative balance of 2640 during the hospital course. When he became euvolemic, a decision was made for a left heart catheterization which was successfully done by Dr. Mynor Solomon. The details of the report is in the chart. Briefly, there was not any critical limiting lesions in the coronaries. Medical management is advised. This morning Mr. Wei refers to feel a lot better. No shortness of breath. No chest pain. Vitals show blood pressure 162/67, pulse 64, respirations 17, and temperature is 98.1 degrees. We think Mr. Wei is clinically stable for discharge. All the discharge instructions have been discussed with him. was actually on his hospital bed at the time of the encounter, and he was in the recliner. Both of them expressed understanding of the recommendations. TIME SPENT: Time spent for discharge is 35 minutes. cc: MD Jorge Rendon MD Peter Johnson, MD MTDD
== END 2019-02-20 13:19 | disposition home or self-care (01) | DRG 286 ==
LOC: ED 18:56 → SUATTDRO 22:42 → 4N 22:42 → 3S 02-18 12:00
PROVIDERS: ATTEND Internal Medicine
CPT/HCPCS: 71020; 71046; 80048; 80053; 80069; 81001; 82550; 82805; 82948; 83605; 83735; 83880; 84443; 84484; 85025; 85027; 85610; 85730; 87040; 87275; 87276; 87804; 93005; 93010; 93306; 93458; 94640; 94760; 94761; 96374; 96375; 96376; 99285; A9270; C8929; J1170; J1644; J1815; J2250; J2930; J7030; Q9957; Q9967; S0171; XXXXX